=== PATIENT | male | born 1960 | race Caucasian/White ===

== ENCOUNTER → 2017-08-15 | Outpatient (CLI) | payer OTHER ==
[~2017-08-15] VITALS: Ht 170.2 cm; Wt 111.1 kg
[~2017-08-15] MED LIST: ENSTILAR 0.005%60 GM TOP; FLEXERIL PO; FOLIC ACID1 MG PO; GABAPENTIN600 M1 PO; HUMIRA40 MG/0.1 SQ; HYDROCODON-ACE1 EAC7 PO; IBUPROFEN 200200 M1 PO; INDOMETHACIN 2525 MG PO; METHOTREXATE 22.5 M1 PO; MUCINEX100 MG PO; NEURONTIN 300300 M1 PO; NORCO 5-325 TA1 EACH PO; NUCYNTA ER100 MG PO; NUCYNTA50 MG PO; NUCYNTA75 MG; NUCYNTA75 MG PO; PREDNISONE 20 M20 M1 PO; ZANTAC 150MG T150 M1 PO; steriod cream
--- NOTE | ~2017-08-15 | P ---
[facility] [place] [address] PROCEDURE REPORT Name: CAPRICE JOHN Room #: REG [facility]#: [id number] Admission: 08/15/17 Attend Phys: Garland Lozada Discharge: Date of : 60 Report #: [id number] THIS REPORT FOR: //name// CC: Garland Coelho MD DATE OF SERVICE: 08/15/2017 PROCEDURE PERFORMED: Colonoscopy. HISTORY OF PRESENT ILLNESS: The patient is a 57-year-old male who presents today for colonoscopy with a history of polyps approximately 5 years ago. He denies any symptoms. No family history of colon cancer. DESCRIPTION OF PROCEDURE: The risks and benefits of the procedure were explained to the patient. Those risks including but not limited to bleeding, perforation and the risk of sedation. He understood these risks and gave informed consent. Sedation was given using propofol per anesthesia. Next, digital rectal exam was initially performed, which was normal. Next, using a standard Olympus colonoscope, the scope was placed in the patient's anus and advanced under direct vision to the cecum. The overall prep was excellent. The cecum and ileocecal valve were normal in appearance. The ascending, transverse, descending and sigmoid colon were all normal. The rectal mucosa was normal. On retroflexion, no abnormalities were noted. The scope was then withdrawn and the procedure terminated. The patient tolerated the procedure well. IMPRESSION: Normal colonoscopy. RECOMMENDATIONS: Repeat colonoscopy in 10 years. Thank you for allowing me to participate in his care. <ELECTRONICALLY SIGNED> By: Garland Cordero MD 08/24/17 0804 [id number] 1023 Garland Cordero MD /nt
== END | disposition home or self-care (01) ==
LOC: GI 07-27 10:32
DX: Z09 Encounter for follow-up examination after completed treatment for conditions other than malignant neoplasm (principal); K21.9 Gastro-esophageal reflux disease without esophagitis; M06.9 Rheumatoid arthritis, unspecified; Z90.49 Acquired absence of other specified parts of digestive tract; Z98.890 Other specified postprocedural states; Z86.010 Personal history of colon polyps; Z79.899 Other long term (current) drug therapy; Z88.0 Allergy status to penicillin; Z79.891 Long term (current) use of opiate analgesic
CPT/HCPCS: 62110; 62900

== ENCOUNTER → 2019-07-09 | Outpatient (CLI) | payer OTHER ==
[~2019-07-09] VITALS: Ht 167.6 cm; Wt 108.8 kg
[~2019-07-09] MED LIST changes: +MELOXICAM15 MG PO; +PEPCID20 MG PO
[2019-07-09 13:40] VITALS: BP 153/95
--- NOTE | 2019-07-09 14:02 | NUR ---
Pain Clinic Assessment: 1. History of Osteoarthritis: * PSORIATIC ARTHRITIS Right Upper Extremity Left Upper Extremity History of Rheumatoid Arthritis: 2. Height: 5 ft. 6 in. 167.6 cm. Weight: 239.8 lb. oz. 108.773 kg. Patient's BMI: 38.7 3. Vital Signs: BP: 153/95 Pulse: 90 Resp: 16 Temp: 02 Sat: 96 ECG Mon: 4. Pain Intensity: 8 5. Fall Risk: Dizziness: N Needs help standing or walking: N Fallen in the last 3 months: N Fall risk comments: 6. Patient on Blood Thinner: None 7. History of Hypertension: N 8. Opioid Therapy greater than 6 weeks: Y Opiate Contract Signed: 9. Risk Assessment Tool Provided: 10. Functional Assessment Tool: 11. Recreational Drug Use: Never Drug Type: Tobacco Use: Never Smoker Tobacco Type: Amount or Packs/day: How Many Years: Alcohol Use: Yes Frequency: Weekly Quant: 2
--- NOTE | 2019-07-15 08:03 | HPC ---
[facility] [place] [address] PAIN MANAGEMENT CONSULTATION Name: SUSIEEloiseCAPRICE [facility] #: [facility] [id number] Admission: 07/09/19 Attend Phys: Shen Galindo DO Discharge: Date of : 60 Report #: [id number] THIS REPORT FOR: cc: Yuri Coelho MD, Rene P. MD Johnson, James E. DO ~ THIS REPORT FOR: //name// CC: Shen Coelho MD DATE OF SERVICE: 07/09/2019 CHIEF COMPLAINT: Left neck pain, left upper extremity pain with paresthesias. HISTORY OF PRESENT ILLNESS: As you know, the patient is a 59-year-old male who reports a new onset of neck pain, right upper extremity pain with paresthesias. The patient indicates symptoms began about 3 weeks ago. He denies injury or trauma. He had been seen in the past here at the pain service for neck pain, left upper extremity pain with paresthesias and we trialled a cervical epidural injection on the patient. The patient states this was the most painful injections he has ever had in his life and would never ever undergo another injection like this again. He unfortunately has begun to experience what is believed to be cervical radiculopathy on the right, symptoms with radiation from the neck all the way down and into all his fingers. He states pain is a very intense placing pain score at 8/10. He has been referred back to our clinic to discuss treatment options for suspected cervical radiculopathy. The patient has no new imaging to assess right cervical radicular pain. ALLERGIES: PENICILLIN. CURRENT MEDICATIONS: Famotidine 20 mg twice a day, meloxicam 15 mg once a day, methotrexate 2.5 mg 3 tabs p.o. daily, guaifenesin 100 mg p.r.n., gabapentin 600 mg t.i.d., cyclobenzaprine 10 mg 3 times a day p.r.n., [place] 5/325 one tab every 6 hours p.r.n. for pain, Humira 40 mg subcutaneous as directed, Enstilar topical as needed. IMAGING: None available. PHYSICAL EXAMINATION: VITAL SIGNS: Blood pressure 153/95, pulse 90, respiratory rate 16 and unlabored. The patient is 96% on room air. Height 5 feet 6 inches tall, weight 239.8 pounds, BMI calculated 38.7. GENERAL: Well-developed, well-nourished, well-hydrated, morbidly obese 59-year-old male appearing stated age, placing current pain score at 8/10. [place] [address] PAIN MANAGEMENT CONSULTATION Name: CAPRICE JOHN Room #: REG [facility].#: [id number] Admission: 07/09/19 Attend Phys: Shen Galindo DO Discharge: Date of : 60 Report #: [id number] HEENT: Normocephalic, atraumatic. Pupils are equal, round, reactive to light. Extraocular muscles are intact. Sclerae nonicteric without injection. NEUROLOGIC: Cranial nerves 2-12 grossly intact. Speech is fluent. The patient deemed a good historian. LUNGS: Clear, no wheeze, rhonchi or rales. CARDIOVASCULAR: Regular. No appreciable gallop or rub. ABDOMEN: Soft, obese, normoactive bowel sounds. EXTREMITIES: Show no clubbing, no cyanosis, and no edema. MUSCULOSKELETAL: The patient has equal and symmetrical upper extremity strength, though slight giveaway noted on the right due to pain generation with biceps flexion and triceps extension. Spurling's test positive right and positive left with right greater than left from a pain standpoint; numbness and tingling, greater on the left. Cervical provocation testing is met with increasing pain on the right and there is moderate restriction of motion. No noted crepitus with this movement. Upper extremity muscle bulk and tone appears equal and symmetrical in comparing left upper extremity to right. Deep tendon reflexes are symmetrical, 1+/4 at biceps, brachialis and triceps. ASSESSMENT: 1. Possible cervical radiculopathy. 2. Cervical spondylosis with radiculopathy. 3. 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 4. Acute onset right upper extremity pain. PLAN: 1. Based on today's physical exam and history the patient has provided, the description the patient uses in regards to pain and the distribution of symptoms, the likely source of the symptoms is a cervical radiculopathy. The patient and I discussed today that the distribution of his symptoms appears to be upon the C6 or possibly C7 dermatome though the patient cannot determine what fingers in his right hand is being involved. He states all of his fingers, which does not correlate with a single level cervical radiculopathy, but does correlate to more of central canal stenosis. We do not have imaging to confirm this diagnosis, but given the widespread distribution of his dermatomal pattern, this would make clinical sense. There is a possibility the patient is experiencing numbness and tingling in a more discrete pattern, but is unable to discern that pattern. We discussed with the patient today treatment options in generality on how to treat cervical radiculopathy. We discussed the following with the patient. We discussed physical therapy, stretching exercise, core strengthening and traction techniques as a treatment course. We discussed medication management, escalating his dose of gabapentin to a level of efficacy. He is currently taking 600 mg 3 times a day, which could be escalated all the way up to 1200 mg 3 times a day if necessary. We also discussed other adjunct treatment options that can be suggested to the primary care. We did discuss cervical epidural [facility] [address] [place] [address] PAIN MANAGEMENT CONSULTATION Name: CAPRICE JOHN Room #: REG [facility]#: [id number] Admission: 07/09/19 Attend Phys: Shen Galindo DO Discharge: Date of : 60 Report #: [id number] injection under fluoroscopic guidance for which the patient stated he would know not be willing to undergo this procedure now or in the future. We also discussed surgical options. After reviewing the risks and benefits of all proposed treatment options, the patient chose to make adjustments in medication management and to discuss with his primary care the possibility of surgical referral. The patient will increase his gabapentin. He is currently taking 300 mg tablets 2 tabs p.o. t.i.d. We recommend he increase in the following fashion. The patient will increase from 2 tabs in the morning, 2 tablets at noon and 2 tabs at night to 2 tabs in the morning, 2 tablets at noon and 3 tabs at night and continue for 3 nights, if no improvement in symptoms, no side effects of sleepiness, disorientation or confusion, then escalate to 2 tabs in morning, 2 tabs at noon, 4 tabs at night for 3 nights, again if no improvement in symptoms, no side effects, then continue this titration, starting with 3 tabs in morning, 2 tabs at noon and 4 tabs at night for 3 days, then 4 tabs in the morning, 2 tablets at noon, 4 tabs at night for 3 days, then if necessary, continue the titration every 3 days to reach 4 tabs 3 times a day. The patient was advised at anytime during the titration the medication he notes improvement in symptoms, stabilize at that dose with no further escalation. If the patient is experiencing side effects, reduce to the dose prior and continue the medication. 4. We do recommend that the patient undergo MRI of the cervical spine for further evaluation. The patient is requesting a possible referral to surgery and this will necessitate a new imaging study. We would be more than willing to review that imaging study once it has been completed. I did advise the patient if he wishes to return, to discuss those findings, he may do so. We will defer to the primary team for the MRI and for referral to Neurosurgery if the patient wishes to do so. 3. We wish to thank Dr. Coelho for the opportunity to see the patient in consultation. We will be available to see the patient back in followup visit if he does wish to discuss the possibility of undergoing a cervical epidural injection, but based on his response today, he had indicated to me and my nurse that he would not be willing to undergo an epidural injection now or even in the future. Certainly if further suggestions for treatment are necessary, the patient could return or if he wishes to review the MRI, he will need to obtain for a surgical consultation, we would be available to do that as well. Again, we wish to thank you for the opportunity to see this patient in consultation. <ELECTRONICALLY SIGNED> By: Shen Galindo DO 07/15/19 [id number] [id number] Shen Galindo DO /nt
== END ==
LOC: PAIN 06:49
DX: M47.22 Other spondylosis with radiculopathy, cervical region (principal); M79.642 Pain in left hand; M79.641 Pain in right hand; Z88.0 Allergy status to penicillin; Z79.899 Other long term (current) drug therapy

== ENCOUNTER → 2019-07-18 | Outpatient (CLI) | payer OTHER | LOC: MRI 15:04 | DX: M48.02 Spinal stenosis, cervical region (principal); M50.11 Cervical disc disorder with radiculopathy, high cervical region ==

== ENCOUNTER → 2020-03-26 | Outpatient (CLI) | payer OTHER ==
[2020-03-26 12:11] LABS: BASOPHILS 0.6 % (0.0-2.0); EOSINOPHILS 3.3 % (0.0-3.0); HEMATOCRIT 43.1 % (42.0-52.0); HEMOGLOBIN 14.5 gm/dL (14.0-18.0); LYMPHOCYTES 38.7 % (24.0-44.0); MCH 32.8 pg (26.0-34.0); MCHC 33.6 g/dL (28.0-37.0); MCV 97.5 fL (80.0-100.0); MONOCYTES 9.8 % (1.0-8.0); PLATELET COUNT 294 thou/uL (150-400); POLYS 47.6 % (36.0-66.0); RBC 4.42 mil/uL (4.50-6.00); RDW 14.4 % (10.5-14.5); WBC 6.2 thou/uL (4.0-11.0)
[2020-03-26 12:21] LABS: ALBUMIN 4.1 g/dL (3.4-5.0); ANION GAP 9 mmol/L (7-16); BUN 23 mg/dL (7-18); CALCIUM 9.3 mg/dL (8.5-10.1); CHLORIDE 105 mmol/L (98-107); CO2 28 mmol/L (21-32); GLUCOSE 86 mg/dL (74-106); POTASSIUM 4.9 mmol/L (3.5-5.1); SGOT 22 U/L (15-37); SGPT 41 U/L (30-65); SODIUM 142 mmol/L (136-145); TOTAL BILIRUBIN 0.3 mg/dL (0.2-1.0); TOTAL PROTEIN 7.1 g/dL (6.4-8.2)
== END ==
LOC: LAB 10:31
PROVIDERS: ATTEND Internal Medicine Rheumatology
DX: L40.50 Arthropathic psoriasis, unspecified (principal); Z79.899 Other long term (current) drug therapy

== ENCOUNTER → 2020-06-18 | Outpatient (CLI) | payer OTHER ==
[2020-06-18 11:26] LABS: CALCIUM 9.3 mg/dL (8.5-10.1); POTASSIUM 4.5 mmol/L (3.5-5.1)
== END ==
LOC: LAB 10:34
PROVIDERS: ATTEND Family Medicine
DX: Z00.00 Encounter for general adult medical examination without abnormal findings (principal); Z12.5 Encounter for screening for malignant neoplasm of prostate

== ENCOUNTER → 2020-10-13 | Outpatient (CLI) | payer OTHER ==
[2020-10-13 13:35] LABS: ABSOLUTE NEUTROPHILS 4.8 thou/uL (1.4-8.2); EOSINOPHILS 2.2 % (0.0-3.0); HEMATOCRIT 44.5 % (42.0-52.0); HEMOGLOBIN 15.1 gm/dL (14.0-18.0); LYMPHOCYTES 28.6 % (24.0-44.0); MCH 32.2 pg (26.0-34.0); MCHC 33.9 g/dL (28.0-37.0); MONOCYTES 9.7 % (1.0-8.0); PLATELET COUNT 296 thou/uL (150-400); POLYS 58.5 % (36.0-66.0); RBC 4.68 mil/uL (4.50-6.00); RDW 14.9 % (10.5-14.5); WBC 8.3 thou/uL (4.0-11.0)
[2020-10-13 13:57] LABS: ALBUMIN 4.1 g/dL (3.4-5.0); CALCIUM 9.2 mg/dL (8.5-10.1); CREATININE 1.1 mg/dL (0.7-1.3); POTASSIUM 4.4 mmol/L (3.5-5.1); TOTAL BILIRUBIN 0.4 mg/dL (0.2-1.0); TOTAL PROTEIN 7.9 g/dL (6.4-8.2)
== END ==
LOC: LAB 12:41
PROVIDERS: ATTEND Internal Medicine Rheumatology
DX: L40.50 Arthropathic psoriasis, unspecified (principal); Z79.899 Other long term (current) drug therapy

== ENCOUNTER → 2021-01-11 | Outpatient (CLI) | payer OTHER ==
[2021-01-11 14:03] LABS: ABSOLUTE NEUTROPHILS 4.3 thou/uL (1.4-8.2); BASOPHILS 0.8 % (0.0-2.0); EOSINOPHILS 2.7 % (0.0-3.0); HEMATOCRIT 41.4 % (42.0-52.0); HEMOGLOBIN 14.5 gm/dL (14.0-18.0); MCH 33.6 pg (26.0-34.0); MCHC 35.1 g/dL (28.0-37.0); MCV 95.7 fL (80.0-100.0); PLATELET COUNT 284 thou/uL (150-400); POLYS 61.5 % (36.0-66.0); RBC 4.32 mil/uL (4.50-6.00); RDW 14.8 % (10.5-14.5); WBC 7.1 thou/uL (4.0-11.0)
[2021-01-11 14:16] LABS: ALBUMIN 4.1 g/dL (3.4-5.0); ANION GAP 8 mmol/L (7-16); BUN 17 mg/dL (7-18); CALCIUM 8.7 mg/dL (8.5-10.1); CHLORIDE 106 mmol/L (98-107); CO2 28 mmol/L (21-32); CREATININE 0.9 mg/dL (0.7-1.3); GLUCOSE 89 mg/dL (74-106); POTASSIUM 4.1 mmol/L (3.5-5.1); SGOT 24 U/L (15-37); SGPT 38 U/L (30-65); SODIUM 142 mmol/L (136-145); TOTAL BILIRUBIN 0.4 mg/dL (0.2-1.0); TOTAL PROTEIN 7.4 g/dL (6.4-8.2)
== END ==
LOC: LAB 12:25
PROVIDERS: ATTEND Internal Medicine Rheumatology
DX: L40.50 Arthropathic psoriasis, unspecified (principal); Z79.899 Other long term (current) drug therapy

== ENCOUNTER → 2021-04-19 | Outpatient (CLI) | payer OTHER ==
[2021-04-19 13:50] LABS: ABSOLUTE NEUTROPHILS 4.2 thou/uL (1.4-8.2); BASOPHILS 0.5 % (0.0-2.0); EOSINOPHILS 2.5 % (0.0-3.0); HEMATOCRIT 42.5 % (42.0-52.0); HEMOGLOBIN 14.1 gm/dL (14.0-18.0); LYMPHOCYTES 27.8 % (24.0-44.0); MCH 32.2 pg (26.0-34.0); MCHC 33.2 g/dL (28.0-37.0); MONOCYTES 8.7 % (1.0-8.0); PLATELET COUNT 304 thou/uL (150-400); POLYS 60.5 % (36.0-66.0); RBC 4.38 mil/uL (4.50-6.00)
[2021-04-19 14:07] LABS: ANION GAP 5 mmol/L (7-16); BUN 16 mg/dL (7-18); CALCIUM 8.9 mg/dL (8.5-10.1); CHLORIDE 100 mmol/L (98-107); CO2 32 mmol/L (21-32); CREATININE 0.9 mg/dL (0.7-1.3); GLUCOSE 94 mg/dL (74-106); POTASSIUM 4.1 mmol/L (3.5-5.1); SGOT 23 U/L (15-37); SGPT 29 U/L (30-65); SODIUM 137 mmol/L (136-145); TOTAL BILIRUBIN 0.2 mg/dL (0.2-1.0); TOTAL PROTEIN 7.4 g/dL (6.4-8.2)
== END ==
LOC: LAB 12:42
PROVIDERS: ATTEND Internal Medicine Rheumatology
DX: L40.50 Arthropathic psoriasis, unspecified (principal); Z79.899 Other long term (current) drug therapy

== ENCOUNTER → 2021-06-21 | Outpatient (CLI) | payer OTHER ==
[2021-06-21 11:26] LABS: ABSOLUTE NEUTROPHILS 3.3 thou/uL (1.4-8.2); BASOPHILS 0.8 % (0.0-2.0); EOSINOPHILS 3.2 % (0.0-3.0); HEMATOCRIT 41.6 % (42.0-52.0); HEMOGLOBIN 14.3 gm/dL (14.0-18.0); LYMPHOCYTES 30.4 % (24.0-44.0); MCH 32.6 pg (26.0-34.0); MCHC 34.3 g/dL (28.0-37.0); MONOCYTES 10.4 % (1.0-8.0); PLATELET COUNT 343 thou/uL (150-400); POLYS 55.2 % (36.0-66.0); RBC 4.38 mil/uL (4.50-6.00)
[2021-06-21 11:41] LABS: ANION GAP 8 mmol/L (7-16); BUN 21 mg/dL (7-18); CALCIUM 8.9 mg/dL (8.5-10.1); CHLORIDE 103 mmol/L (98-107); CHOLESTEROL 188 mg/dL (<200); CO2 29 mmol/L (21-32); CREATININE 0.9 mg/dL (0.7-1.3); GLUCOSE 102 mg/dL (74-106); HDL CHOLESTEROL 71 mg/dL (>40); LDL CHOLESTEROL 103 mg/dL (<100); POTASSIUM 3.9 mmol/L (3.5-5.1); SGOT 27 U/L (15-37); SGPT 39 U/L (30-65); SODIUM 140 mmol/L (136-145); TC:HDL 2.6 Ratio (Not establshd); TOTAL BILIRUBIN 0.3 mg/dL (0.2-1.0); TOTAL PROTEIN 7.3 g/dL (6.4-8.2); TRIGLYCERIDE 74 mg/dL (<150); VLDL 15 mg/dL (<40)
[2021-06-22 07:12] LABS: GLYCOHEMOGLOBIN (HGB A1C) 5.9 % (4.8-5.6)
== END ==
LOC: LAB 10:11
PROVIDERS: ATTEND Family Medicine
DX: N40.0 Benign prostatic hyperplasia without lower urinary tract symptoms (principal); E78.5 Hyperlipidemia, unspecified; R73.9 Hyperglycemia, unspecified

== ENCOUNTER 2021-07-11 13:00 | Emergency (ER) | payer OTHER ==
[~2021-07-11] VITALS: Ht 170.2 cm; Wt 68.0 kg
--- NOTE | 2021-07-11 13:52 | EKG ---
[place] [address] [facility] [employer] [place] [address] ELECTROCARDIOGRAM REPORT Name: CAPRICE JOHN [facility]: [facility] [id number] Admission: 07/11/21 Attend Phys: Discharge: Date of : 60 Report #: [id number] [facility] ED Test Date: 2021-07-11 Test Time: 13:10:45 Pat Name: CAPRICE JOHN Department: Room: Gender: M [employer] Zigzag: COLLIN : 1960 Requested By: Ronaldo Ren Order Number: [id number] MD: Moises Funez Measurements Intervals [place] Rate: 81 P: 32 OK: 164 QRS: 166 QRSD: 99 T: 48 QT: 387 QTc: 450 Interpretive Statements Sinus rhythm Consider right ventricular hypertrophy Baseline wander in lead(s) III,V5,V6 No previous ECG available for comparison Electronically Signed On 07-11-2021 13:52:44 TELEPHONE AD TAKER by Moises Funez [email or web address] <ELECTRONICALLY SIGNED> By: Moises Funez MD, [facility] 07/11/21 1352 1310 1310 Moises Funez MD, FACC /EPI
[2021-07-11 14:32] LABS: LIPASE 143 U/L (73-393)
[2021-07-11 14:49] LABS: URINE BILIRUBIN NEGATIVE (Negative); URINE BLOOD NEGATIVE (Negative); URINE CLARITY CLEAR; URINE COLOR YELLOW; URINE GLUCOSE-RANDOM* NEGATIVE (Negative); URINE KETONES NEGATIVE (Negative); URINE LEUKOCYTES-REFLEX NEGATIVE (Negative); URINE NITRITE-REFLEX NEGATIVE (Negative); URINE PROTEIN (DIPSTICK) NEGATIVE (Negative); URINE SPECIFIC GRAVITY 1.015 (1.005-1.035); URINE UROBILINOGEN 0.2 E.U./dl (0.2-1.0)
[2021-07-11 15:10] LABS: BASOPHILS 0.6 % (0.0-2.0); EOSINOPHILS 2.4 % (0.0-3.0); HEMATOCRIT 39.7 % (42.0-52.0); HEMOGLOBIN 13.8 gm/dL (14.0-18.0); LYMPHOCYTES 25.1 % (24.0-44.0); MCH 32.8 pg (26.0-34.0); MCHC 34.8 g/dL (28.0-37.0); MCV 94.3 fL (80.0-100.0); MONOCYTES 10.8 % (1.0-8.0); PLATELET COUNT 263 thou/uL (150-400); POLYS 61.1 % (36.0-66.0); RBC 4.22 mil/uL (4.50-6.00); RDW 14.6 % (10.5-14.5); WBC 6.6 thou/uL (4.0-11.0)
[2021-07-11 15:13] LABS: CALCIUM 8.7 mg/dL (8.5-10.1); CREATININE 0.9 mg/dL (0.7-1.3); POTASSIUM 3.9 mmol/L (3.5-5.1)
[2021-07-11 15:19] LABS: ALBUMIN 3.9 g/dL (3.4-5.0); TOTAL BILIRUBIN 0.3 mg/dL (0.2-1.0)
[2021-07-11 15:35] VITALS: BP 157/84
== END 2021-07-11 15:58 | disposition home or self-care (01) ==
LOC: ER 13:00
PROVIDERS: Physician Assistant
DX: R07.89 Other chest pain (principal); I10 Essential (primary) hypertension